=== PATIENT | female | born 1960 ===

== ENCOUNTER 2016-08-16 08:45 | Day surgery (SDC) | payer OTHER ==
[2016-08-16 10:53] VITALS: TEMP 97
[2016-08-16] MEDS ORDERED: Propofol 10 mg/ml Inj (20 ML) ONE (11:42)
[2016-08-16] MEDS ORDERED: Lactated Ringer's 500 ML IV ONE ×3 (11:49→12:05)
[2016-08-16 12:24] VITALS: O2SAT 99
[2016-08-16 12:34] VITALS: BP 120/70; PULSE 73; RESP 15
== END 2016-08-16 12:59 | disposition home or self-care (01) ==
LOC: H.ENDO 08:45
PROVIDERS: ATTEND Internal Medicine Gastroenterology
DX: Z12.11 Encounter for screening for malignant neoplasm of colon (principal); Q43.8 Other specified congenital malformations of intestine; K64.8 Other hemorrhoids

== ENCOUNTER 2016-12-30 14:53 | Emergency (ER) | payer OTHER, SELFPAY ==
[2016-12-30 15:01] VITALS: BP 145/64; PULSE 55; RESP 18; TEMP 97.1; O2SAT 98
--- NOTE | 2016-12-30 15:59 | RAD ---
PROCEDURE: Radiographs of the right elbow. HISTORY: fall trauma COMPARISON: No prior. FINDINGS: BONES: No acute fracture. There is curvilinear calcific density adjacent to the medial epicondyles consistent with old avulsion trauma. JOINTS: Normal. No osteoarthritis. SOFT TISSUES: Normal. JOINT EFFUSION: None. OTHER FINDINGS: None. IMPRESSION: No acute fracture
--- NOTE | 2016-12-30 16:00 | RAD ---
PROCEDURE: Radiographs of the Right Forearm HISTORY: fall trauma COMPARISON: None available. TECHNIQUE: Frontal and lateral views obtained. FINDINGS: BONES: Comminuted nondisplaced distal radial fracture. Please see report of right wrist. No other fracture identified. JOINT SPACES: Unremarkable. OTHER FINDINGS: None. IMPRESSION: Comminuted distal radial fracture.
--- NOTE | 2016-12-30 16:01 | RAD ---
PROCEDURE: Right Wrist Radiographs. HISTORY: fall trauma COMPARISON: None. FINDINGS: BONES: Comminuted nondisplaced intra-articular distal radial fracture. The radiocarpal articulation appears intact. The distal radial ulnar articulation appears intact. Normal carpal alignment is maintained. JOINTS: Normal. No dislocation. SOFT TISSUES: Normal. OTHER FINDINGS: None. IMPRESSION: Comminuted intra-articular nondisplaced distal radial fracture.
--- NOTE | 2016-12-30 16:02 | RAD ---
PROCEDURE: Right Hand Radiographs. HISTORY: fall trauma COMPARISON: None. FINDINGS: BONES: Comminuted nondisplaced intra-articular distal radial fracture. There is no other fracture identified. The mid 4th proximal phalanx is obscured by a metallic ring. JOINTS: Normal. No osteoarthritic changes. SOFT TISSUES: Normal. OTHER FINDINGS: None. IMPRESSION: Comminuted intra-articular distal radial fracture. No additional abnormality.
--- NOTE | 2016-12-30 17:12 | ED PDOC ---
Upper Extremity Pain/Injury Time Seen by Provider: 12/30/16 15:04 Chief Complaint (Nursing): Upper Extremity Problem/Injury Chief Complaint (Provider): I hurt my wrist History Per: Roving Carrier (Gauri YOO) History/Exam Limitations: no limitations Onset/Duration Of Symptoms: Hrs (4) Current Symptoms Are (Timing): Still Present Quality: Sharp Exacerbating Factor(s): Strenuous Use Of Affected Area, Movement Additional Complaint(s): 56yo female states she tripped/fell on street today, injury her right wrist. She went home after the injury and took OTC analgesic which did not relieve pain thus came to ED. Denies head or neck injury. Denies elbow, upper arm pain or headache. Pt is R hand dominant. Past Medical History Reviewed: Historical Data, Nursing Documentation, Vital Signs Vital Signs: Last Vital Signs Temp 97.1 F L 12/30/16 14:55 Pulse 55 L 12/30/16 14:55 Resp 18 12/30/16 14:55 BP 145/64 12/30/16 14:55 Pulse Ox 98 12/30/16 14:55 - Medical History PMH: No Chronic Diseases - Surgical History Surgical History: No Surg Hx - Family History Family History: States: Unknown Family Hx - Living Arrangements Living Arrangements: With Family - Social History Current smoker - smoking cessation education provided: No - Home Medications Home Medications: Ambulatory Orders Medication Instructions Recorded Naproxen [Naprosyn] 500 mg PO BID PRN #14 tablet 12/30/16 oxyCODONE/Acetaminophen 1/2TAB 0.5 ea PO Q4 PRN #8 tab 12/30/16 [Percocet 5-325 mg HALF TAB] - Allergies Allergies/Adverse Reactions: Allergies Allergy/AdvReac Type Severity Reaction Status Date / Time No Known Allergies Allergy Verified 08/16/16 10:42 Review of Systems ROS Statement: Except As Marked, All Systems Reviewed And Found Negative Constitutional: Negative for: Fever, Chills Cardiovascular: Negative for: Chest Pain, Palpitations Respiratory: Negative for: Cough, Shortness of Breath Gastrointestinal: Negative for: Nausea, Vomiting Musculoskeletal: Positive for: Arm Pain, Hand Pain. Negative for: Neck Pain, Leg Pain, Foot Pain Skin: Negative for: Rash, Lesions, Jaundice Neurological: Negative for: Weakness, Numbness Physical Exam - Reviewed Nursing Documentation Reviewed: Yes Vital Signs Reviewed: Yes - Physical Exam Appears: Positive for: Well, Non-toxic, No Acute Distress Head Exam: Positive for: ATRAUMATIC, NORMAL INSPECTION, NORMOCEPHALIC Skin: Positive for: Normal Color, Warm, DRY Eye Exam: Positive for: EOMI, Normal appearance, PERRL ENT: Positive for: Normal ENT Inspection Neck: Positive for: Normal, Painless ROM Cardiovascular/Chest: Positive for: Regular Rate, Rhythm Respiratory: Positive for: CNT, Normal Breath Sounds Back: Positive for: Normal Inspection Extremity: Positive for: Tenderness (R distal wrist and hand), Swelling (R distal wrist w mild ecchymosis), Other (+tender R distal wrist) Neurologic/Psych: Positive for: Alert, Oriented. Negative for: Motor/Sensory Deficits - ECG O2 Sat by Pulse Oximetry: 98 Medical Decision Making Medical Decision Making: XRays reveal +intrarticular nondisplaced distal radius fracture. Case d/w Dr Jefferson collections director ortho who viewed films and requested sugar tong splint and followup with him. Splint placed by tech and confirmed placement by MD, neurovascularly intact prior to and after application. Rx analgesics and followup instructions explained in south korean. Keep elevated, splint care, pain control, definitive care via orthopedics. Explained given intra-articular may require further intervention possible surgery but for orthopedics to decide. Failure to followup could result in permanent pain, disability or loss of use of hand/wrist. Disposition - Clinical Impression Clinical Impression: Fracture of wrist - Patient ED Disposition Is Patient to be Admitted: No Counseled Patient/Family Regarding: Studies Performed, Diagnosis, Need For Followup, Rx Given - Disposition Referrals: [facility] [Outside] [facility] [Outside] Amisha Jefferson MD [Staff Provider] - Disposition: Routine/Home Disposition Time: 17:35 Condition: STABLE Additional Instructions: Seguimiento con ortopedista para el cuidado definitivo, puede necesitar ciruga para esta lesin. Use frula en todo momento. No quite la frula, mantngala limpia y seca. Mantenga el brazo elevado. Duerma con el brazo sobre britt almohada al lado de usted. Vuelva a la alix de emergencias por cualquier sntoma peor o nuevo, peor dolor, entumecimiento, hormigueo o cualquier preocupacin. [place] los medicamentos para el dolor segn las indicaciones. Icelandic: Followup with orthopedist for definitive care, you may need surgery for this injury. Wear splint at all times. Do not remove splint, keep it clean and dry. Keep arm elevated. Sleep with arm on a pillow next to you. Return to ER for any worse or new symptoms, worse pain, numbness, tingling or any concern. Take pain medicine as directed. Prescriptions: Naproxen [Naprosyn] 500 mg PO BID PRN #14 tablet PRN Reason: Pain, Moderate (4-7) oxyCODONE/Acetaminophen 1/2TAB [Percocet 5-325 mg HALF TAB] 0.5 ea PO Q4 PRN #8 tab PRN Reason: Pain, Severe (8-10) Instructions: Wrist Fracture in Adults (ED) Forms: [employer] (Occitan) - POA Present On Arrival: Falls Or Trauma
== END 2016-12-30 18:32 | disposition home or self-care (01) ==
LOC: H.ER 14:53
DX: S61.411A Laceration without foreign body of right hand, initial encounter (principal); W19.XXXA Unspecified fall, initial encounter; Y92.89 Other specified places as the place of occurrence of the external cause
CPT/HCPCS: 29125; 73080; 73090; 73110; 73130; 99282; J2270

== ENCOUNTER 2018-03-13 15:48 | Emergency (ER) | payer SELFPAY ==
[2018-03-13 16:01] VITALS: O2SAT 98
--- NOTE | 2018-03-13 18:02 | ED PDOC ---
HPI: Female Pain Time Seen by Provider: 03/13/18 17:48 Chief Complaint (Nursing): Female Genitourinary Chief Complaint (Provider): Abscess History Per: Patient History/Exam Limitations: no limitations Onset/Duration Of Symptoms: Days (x5) Current Symptoms Are (Timing): Still Present Additional Complaint(s): 57 year old female presents to the ED for evaluation of an abscess to her right genital area with swelling and redness, worsening since onset five days ago with bleeding from the area yesterday. Denies fever, similar abscess elsewhere on body, recent new sexual relations, or sexual intercourse in the past couple months. Tetanus up to date. PMD: none provided Past Medical History Reviewed: Historical Data, Nursing Documentation, Vital Signs Vital Signs: Last Vital Signs Temp 97.6 F 03/13/18 15:58 Pulse 87 03/13/18 15:58 Resp 16 03/13/18 15:58 BP 155/81 H 03/13/18 15:58 Pulse Ox 98 03/13/18 15:58 - Medical History PMH: No Chronic Diseases - Surgical History Surgical History: Other surgeries: wrist surgery - Family History Family History: States: Unknown Family Hx - Social History Current smoker - smoking cessation education provided: No Alcohol: None Drugs: Denies - Immunization History Hx Tetanus Toxoid Vaccination: No Hx Influenza Vaccination: No Hx Pneumococcal Vaccination: No - Home Medications Home Medications: Ambulatory Orders Medication Instructions Recorded Naproxen [Naprosyn] 500 mg PO BID PRN #14 tablet 12/30/16 oxyCODONE/Acetaminophen 1/2TAB 0.5 ea PO Q4 PRN #8 tab 12/30/16 [Percocet 5-325 mg HALF TAB] Cephalexin [cephalexin] 500 mg PO TID #21 cap 03/13/18 RX: Ibuprofen [Motrin Tab] 600 mg PO Q8 PRN #30 tab 03/13/18 Sulfamethoxazole/Trimethoprim 1 tab PO BID #14 tab 03/13/18 [Bactrim DS 800 mg-160 mg] - Allergies Allergies/Adverse Reactions: Allergies Allergy/AdvReac Type Severity Reaction Status Date / Time No Known Allergies Allergy Verified 08/16/16 10:42 Review of Systems Constitutional: Negative for: Fever Genitourinary Female: Positive for: Other (abscess on right genital area with redness and bleeding) Physical Exam - Reviewed Nursing Documentation Reviewed: Yes Vital Signs Reviewed: Yes - Physical Exam Appears: Positive for: Non-toxic, In Acute Distress (mild painful) Gastrointestinal/Abdominal: Positive for: Normal Exam, Soft. Negative for: Tenderness, Mass, Guarding, Rebound Pelvic Exam: Positive for: Other (External genital exam: erythematous indurated swelling at posterior right labia majora with central pinpoint eschar that is expressing a small drop of yellow discharge; otherwise no palpable fluctuance; rest appears normal; vulvar area normal with no swelling at the location of the Bartholin's gland) Extremity: Positive for: Normal ROM Lymphatic: Negative for: Inguinal Node Tenderness - ECG O2 Sat by Pulse Oximetry: 98 (RA) Pulse Ox Interpretation: Normal Medical Decision Making Medical Decision Making: Time: 1800 Initial Impression: abscess of labia majora Initial Plan: --Patient advised to take warm baths, use anti-inflammatory meds, antibiotics, and to follow up with her PMD for reevaluation in 48 hours. Scribe Attestation: Documented by Alma White, acting as a scribe for Carol Mcgovern MD. Provider Scribe Attestation: All medical record entries made by the Scribe were at my direction and personally dictated by me. I have reviewed the chart and agree that the record accurately reflects my personal performance of the history, physical exam, medical decision making, and the department course for this patient. I have also personally directed, reviewed, and agree with the discharge instructions and disposition. Disposition - Clinical Impression Clinical Impression: Abscess of labia majora - Disposition Referrals: [facility] [Outside] Disposition: Routine/Home Disposition Time: 18:00 Condition: STABLE Additional Instructions: [facility] Prescriptions: Cephalexin [cephalexin] 500 mg PO TID #21 cap RX: Ibuprofen [Motrin Tab] 600 mg PO Q8 PRN #30 tab PRN Reason: Pain, Moderate (4-7) Sulfamethoxazole/Trimethoprim [Bactrim DS 800 mg-160 mg] 1 tab PO BID #14 tab Instructions: Kobi (DC), How to Do a Sitz Bath Print Language: LUXEMBOURGER
[2018-03-13 18:37] VITALS: BP 124/78; PULSE 74; RESP 20; TEMP 98.6
== END 2018-03-13 18:37 | disposition home or self-care (01) ==
LOC: H.ER 15:48
DX: N76.4 Abscess of vulva (principal)